=== PATIENT | male | born 1985 | race Caucasian/White ===

== ENCOUNTER 2016-10-16 13:02 | Emergency (ER) | payer OTHER ==
[~2016-10-16] VITALS: Wt 79.5 kg
[2016-10-16] MEDS ORDERED: LIDOCAINE 1% (MDV) 20 ML INJ SC ONE (13:30)
[2016-10-16] MEDS ORDERED: ACET500C5 PO (13:52)
--- NOTE | 2016-10-16 13:54 | ERD ---
ER Documentation Chief Complaint Date/Time DATE: 10/16/16 TIME: 13:53 Chief Complaint r forearm laceration from pipe while at work . bleedng controlled. 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 He denies restricted range of motion or weakness. His tetanus is up-to-date approximately 2 years ago. ROS All systems reviewed and are negative except as per history of present illness. Medications Home Meds Active Scripts Acetaminophen* (Tylophen*) 500 Mg Capsule, 1 CAP PO Q6H Y for PAIN AND OR ELEVATED TEMP, #15 CAP Prov:DEBORAH CULP MD 10/16/16 Physical Exam Vitals Vital Signs Date Time Temp Pulse Resp B/P Pulse Ox O2 Delivery O2 Flow Rate FiO2 10/16/16 13:06 98.8 85 20 135/85 98 Physical Exam Const: [], [id number] Head: Atraumatic Eyes: Normal Conjunctiva ENT: Normal External Ears, Nose and Mouth. Neck: Full range of motion..~ No meningismus. Resp: Clear to auscultation bilaterally Cardio: Regular rate and rhythm, no murmurs Abd: Soft, non tender, non distended. Normal bowel sounds Skin: No petechiae or rashes Back: No midline or flank tenderness Ext: No cyanosis, or edema. On the dorsum of the right wrist there is approximately 3 cm laceration was some venous oozing with no arterial bleeding. There is no restricted range of motion weakness and no evidence of tendon or neurologic deficit. Neur: Awake and alert Psych: Normal Mood and Affect Results 24 hrs Laboratory Tests Test 10/16/16 14:05 Urine Opiates Screen Negative Urine Barbiturates Negative Urine Amphetamines Screen Negative Urine Benzodiazepines Screen Negative Urine Cocaine Screen Negative Urine Cannabinoids Positive Current Medications Medications (Trade) Dose Ordered Sig/Jackie Route PRN Reason Start Time Stop Time Status Last Admin Dose Admin Lidocaine (Xylocaine 1% (Mdv) 20 ml) 20 ml ONCE ONCE SC 10/16/16 13:30 10/16/16 13:31 DC Acetaminophen (Tylenol Tab) 650 mg ONCE ONCE PO 10/16/16 14:30 10/16/16 14:30 DC 10/16/16 14:08 Procedures/MDM Procedure note-patient has wound copiously irrigated with normal saline. 2 cc of lidocaine was used for local infiltration. 5 3-0 nylon sutures were used to reapproximate the wound. Wound was dressed and patient tolerated procedure well. Patient was placed in a right wrist Velcro brace as well to limit flexion. Patient is neurovascular intact after Velcro brace. Patient has no evidence of tendon or neurologic deficit, bacterial infection, fracture, dislocation, signs or mechanism to suggest foreign body. Patient will be discharged home instructions for wound check in 2 days and suture removal in 7-10 days. Urine drug screen by request was positive for cannabinoids. 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 Departure Diagnosis: Primary Impression: Laceration Condition: Stable Patient Instructions: Laceration, All Additional Instructions: 2 DAYS WOUND CHECK. 10 days suture removal DEBORAH CULP MD October 16, 2016 13:54
[2016-10-16 14:30] LABS: CANNABINOIDS Positive (NEGATIVE)
[2016-10-16] MEDS ORDERED: ACETAMINOPHEN 325 MG TAB PO ONE (14:30)
[2016-10-16 14:34] LABS: BARBITURATES Negative (NEGATIVE); BENZODIAZEPINES Negative (NEGATIVE); COCAINE Negative (NEGATIVE); OPIATES Negative (NEGATIVE)
== END 2016-10-16 14:12 | disposition home or self-care (01) ==
LOC: FTE 13:02
DX: S61.511A Laceration without foreign body of right wrist, initial encounter (principal); Y28.8XXA Contact with other sharp object, undetermined intent, initial encounter; Y92.69 Other specified industrial and construction area as the place of occurrence of the external cause
CPT/HCPCS: 80307